=== PATIENT | female | born 1965 | race Caucasian/White ===

== ENCOUNTER 2020-04-24 15:26 | Outpatient (CLI) | payer BC, SELFPAY ==
--- NOTE | 2020-04-24 11:30 | DI.RAD_ITS ---
EXAM: XR SHOULDER LT COMPLETE 2+V CLINICAL HISTORY: left shoulder pain TECHNIQUE: COMPARISON: No exams were available for comparison FINDINGS: Two views were obtained. Cartilaginous joint space of the glenohumeral joint may be slightly narrowe d. There are calcific or ossific radiodensities adjacent to the greater tuberosity of the humerus, m ost likely representing a calcific peritendinitis. There are slight hypertrophic degenerative change s at the AC joint. No other bony or soft tissue abnormality seen. IMPRESSION: Mild DJD, question calcific peritendinitis associated with supraspinatus. RADIATION DOSE DELIVERED: Total DLP
--- NOTE | 2020-04-24 11:45 | DI.RAD_ITS ---
EXAM: XR CERVICAL SPINE 1V CLINICAL HISTORY: left shoulder pain TECHNIQUE: COMPARISON: No exams were available for comparison FINDINGS: Two views were obtained. There is slight narrowing of the intervertebral disc space at C4-5 level. There are moderate hypertrophic endplate osteophytes at C3-4, C4-5, and C5-6. Slight facet hypertrop hic degenerative changes also noted in the mid cervical spine. Prevertebral soft tissues appear inta ct. IMPRESSION: Moderate degenerative changes of the cervical spine as described above. RADIATION DOSE DELIVERED: Total DLP
== END 2020-04-24 15:46 ==
PROVIDERS: Referring Provider Student in an Organized Health Care Education/Training Program; Visit Provider Student in an Organized Health Care Education/Training Program
DX: M47.812 Spondylosis without myelopathy or radiculopathy, cervical region (principal); M19.012 Primary osteoarthritis, left shoulder; M25.512 Pain in left shoulder
CPT/HCPCS: 72020; 73030

== ENCOUNTER 2020-07-27 14:33 | Emergency (ER) | payer BC, SELFPAY ==
[2020-07-27 14:42] VITALS: BP 179/94; PULSE 84; RESP 20; TEMP 37.2; O2SAT 97
[2020-07-27 15:02] VITALS: O2SAT 98
--- NOTE | 2020-07-27 15:15 | RT.EKG_ITS ---
APPROVED REPORT Exam: Resting ECG Patient Location: E HR:71 bpm ECG Measurements Heart Rate 71 AXIS MS 190 P 55 QRSd 95 QRS -20 QT 391 T 58 QTc 425 Conclusion Sinus rhythm...normal P axis, V-rate 60- 99
--- NOTE | 2020-07-27 15:15 | DI.RAD_ITS ---
EXAM: XR PORTABLE CHEST AP CLINICAL HISTORY: covid, sob TECHNIQUE: 2D digital imaging was performed. COMPARISON: No exams were available for comparison FINDINGS: Heart size is within normal limits. There are faint bilateral hazy peripheral infiltrates. No focal consolidation or effusion is seen. There is no evidence of pulmonary edema. There is no pneumothor ax. IMPRESSION: Faint bilateral infiltrates, could be consistent with COVID-19. DATA REPOSITORY: RADIATION DOSE DELIVERED:
--- NOTE | 2020-07-27 15:32 | ED.GENADUL_ITS ---
Discharge Plan Disposition Patient Disposition: HOME Condition: Good Discharge Details Clinical Impression: COVID-19 Primary Care Provider: None,None ED Provider: Heidy Tapia Home Meds and New Rx's Prescriptions: New triamcinolone acetonide 0.1 % cream 1 applic topical BID Qty: 30 RF: 0 No Action ibuprofen [Advil] 200 mg tablet 200 mg PO Q6H PRNRF: 0 Discharge Instructions Additional Instructions: Please follow-up with your primary care doctor, we will contact you this week to establish primary care You may use the triamcinolone ointment, use this for the shortest duration possible Please return earlier should you have oxygen levels below 89%, chest pain, worsening shortness of breath, or with any new or pressing symptom Medical Decision Making Patient is afebrile, nontoxic Is noted to be mildly hypertensive, will recheck with primary care physician, care management made aware the patient does not have a local primary care Her chest x-ray per virtual radiology does show bilateral parenchymal infiltrates which are stable She is not hypoxic, oxygenation 98%, likely residual from COVID-19, no indication for antibiotics at this time, no leukocytosis, no hypoxia, no tachypnea Discharge home stable condition with relatively stable vital signs Does have elevated LFTs, patient states she does have a history of fatty liver is not new for patient She will follow up with primary care regarding finding She has no abdominal tenderness She is quite well-appearing, speaking complete sentences, and otherwise normal exam, she is ambulatory with steady gait, I did check orthostatics which were negative She came with results return to care here at complaints She is ambulatory for 2 minutes in the room and does not desaturate below 96% on room air Clinically low suspicion for pulmonary embolism, aside from age as a risk factor, she is not having pleuritic pain, hypoxia, or tachycardia, no tachypnea Differential Diagnosis Differential Diagnosis: Pulmonary embolism, pneumonia, COVID-19, pleurisy Medical Records Medical records reviewed: Yes I reviewed the patient's medical records. Lab Data Lab results reviewed: Yes I reviewed the patient's lab results. ECG Data Prior ECG tracings: available for review HPI This 55-year-old female presents with report of cough, shortness of breath, lightheadedness. She was diagnosed to have COVID-19 on 12 July. This is day 4 of her illness. She states her daughter wants first. She states she is concerned because she has had persistent lightheadedness with shortness of breath and her diagnosis. She denies any chest pain associated. She is also had cough which started later in the illness, approximately 7 days ago. She denies any calf pain or swelling or history of coagulopathy. She denies any fever or chills today. She denies any nausea or vomiting. She has been using a pulse oximeter at home and states that her oxygen saturations have been between 91 and 92% with exertion. She denies history of COPD or asthma. She denies history immunosuppression. She does not smoke tobacco currently. General Date/Time Provider Initiated Documentation: 07/27/20 14:35 . Related Data Home Medications Medication Instructions Recorded Confirmed ibuprofen 200 mg tablet 200 mg PO Q6H PRN 04/24/20 07/27/20 triamcinolone acetonide 1 applic TOPICAL BID #30 g 07/27/20 Previous Rx's Medication Instructions Recorded triamcinolone acetonide 1 applic TOPICAL BID #30 g 07/27/20 Allergies Allergy/AdvReac Type Severity Reaction Status Date / Time No Known Allergies Allergy Verified 07/27/20 14:44 General Stated Complaint: RespSymp SHARONA: 4 Review of Systems Narrative: Review of systems negative x7 aside from where indicated in HPI [facility] Social History (Updated 04/24/20 @ 11:29 by Jenni Vasquez RN, RN) Smoking/Tobacco Use Status: Former Tobacco Use Quit Date: 06/28/99 Smoking risk assessment performed?: Yes Alcohol Intake: current Alcohol Intake frequency: 0-2 drinks per day Drug use: Never Current gender identity: female Do you feel safe at home: Yes Do you feel safe in your relationship?: Yes Exam Const General: healthy appearing and no acute distress Eyes Conjunctivae: conjunctivae normal Chest Chest: normal inspection of the chest Resp Effort & Inspection: normal respiratory effort and able to speak in complete sentences Auscultation: clear to auscultation bilaterally Cardio Rate: regular rate Rhythm: regular rhythm GI Inspection: normal to inspection Skin General skin exam: no rashes or lesions noted Neuro General: patient alert Extrem Other: No extremity swelling Course Vital Signs Vital signs: Vital Signs Temperature 37.2 C 07/27/20 14:42 Pulse 84 07/27/20 14:42 Respiratory Rate 20 07/27/20 14:42 Blood Pressure 179/94 H 07/27/20 14:42 Pulse Oximetry 97 07/27/20 14:42 Temperature 37.2 C 07/27/20 14:42 Temperature Source Skin 07/27/20 14:42 Pulse 84 07/27/20 14:42 Respiratory Rate 20 07/27/20 14:42 Respiratory Effort Non-Labored 07/27/20 14:46 Respiratory Depth Normal 07/27/20 14:46 Blood Pressure 179/94 H 07/27/20 14:42 Blood Pressure Position Sitting 07/27/20 14:42 Pulse Oximetry 97 07/27/20 14:42 Oxygen Delivery Method Room Air 07/27/20 14:42 Oxygen Flow Rate 0 07/27/20 14:42 Pain Level 0 07/27/20 14:42
[2020-07-27 15:52] LABS: Abs Immature Grans 0.02 10^3/uL (0.0-0.06); Absolute Basophil Count 0.08 10^3/uL (0.0-0.2); Absolute Eosinophil Count 0.26 10^3/uL (0.0-0.7); Absolute Lymphocyte Count 2.48 10^3/uL (1.2-3.4); Absolute Monocyte Count 0.92 10^3/uL (0.1-0.8); Absolute Neutrophil Count 4.15 10^3/uL (1.2-6.7); Eosinophils % 3.3; HGB 14.8 g/dL (11.2-15.7); Immature Grans % 0.3; Lymphocytes % 31.4; MCH 30.3 pg (27.0-33.0); MCHC 34.4 % (32.0-36.0); MCV 87.9 fL (80-95); MPV 10.1 fL (8.0-11.0); Monocytes % 11.6; Neutrophils % 52.4; Nucleated RBC 0 %; Platelet Count 317 10^3/uL (130-400); RBC 4.89 10^6/uL (3.93-5.22); RDW 11.7 % (11.7-14.6); RDW-SD 37.6 fL; WBC 7.91 10^3/uL (4.4-10.8)
[2020-07-27 16:06] LABS: ALT 73 U/L (14-59); AST 34 U/L (15-37); Albumin 4.1 g/dL (3.4-5.0); Alkaline Phosphatase 121 U/L (46-116); Anion Gap 9.5 mmol/L (3-11); BUN 11 mg/dL (7-18); Bilirubin, Total 0.4 mg/dL (0.2-1.0); CO2 27.5 mmol/L (21.0-32.0); CREATININE 0.7 mg/dL (0.55-1.02); Chloride 103 mmol/L (98-107); Glucose 89 mg/dL (74-106); Potassium 3.9 mmol/L (3.5-5.1); Sodium 140 mmol/L (136-145); Total Protein 7.9 g/dL (6.4-8.2)
--- NOTE | 2020-07-27 16:24 | DI.VRAD_ITS ---
PROCEDURE INFORMATION: Exam: XR Chest, 1 View Exam date and time: 07/27/2020 3:17 PM Age: 55 years old Clinical indication: Other: Covid, SOB TECHNIQUE: Imaging protocol: XR of the chest Views: 1 view. COMPARISON: No relevant prior studies available. FINDINGS: Lungs: Subtle peripheral parenchymal opacities suspicious for infiltrate. Pleural spaces: Unremarkable. No pleural effusion. No pneumothorax. Heart/Mediastinum: Unremarkable. No cardiomegaly. Bones/joints: Unremarkable. IMPRESSION: Subtle peripheral parenchymal opacities suspicious for infiltrate. Dictated and Authenticated by: Melanie Ball MD. Ordering:JUAN Moody MD
--- NOTE | 2020-07-27 16:42 | NUR.NOTE ---
Referral to Care Management to establish pcp.Nursing Note:
[2020-07-27 16:54] VITALS: BP 154/97; PULSE 71; RESP 12; TEMP 36.7; O2SAT 95
== END 2020-07-27 16:55 | disposition home or self-care (01) ==
PROVIDERS: Emergency Provider Physician Assistant
DX: U07.1 COVID-19 (principal); R06.02 Shortness of breath; R42 Dizziness and giddiness; R05 Cough
CPT/HCPCS: 36415; 80053; 93005; 99285; 71045; 85025; 93010; 99284

== ENCOUNTER 2021-09-11 20:30 | Outpatient (REF) | payer BC, SELFPAY ==
[2021-09-13 11:53] LABS: COVID-19 RT-PCR UVMMC Result Negative (Negative)
== END 2021-09-11 20:31 | disposition home or self-care (01) ==
LOC: LBN 20:30
PROVIDERS: Visit Provider Physician Assistant Medical
DX: Z20.822 Contact with and (suspected) exposure to COVID-19 (principal); J02.9 Acute pharyngitis, unspecified
CPT/HCPCS: U0003; 87070